=== PATIENT | female | born 1955 | race Caucasian/White ===

== ENCOUNTER 2019-01-31 08:06 | Outpatient (CLI) | payer MEDICARE | END 2019-01-31 23:59 | disposition home or self-care (01) | LOC: CFH 08:06 | PROVIDERS: ATTEND Internal Medicine Cardiovascular Disease | DX: E78.5 Hyperlipidemia, unspecified (principal); R07.9 Chest pain, unspecified; I50.9 Heart failure, unspecified | CPT/HCPCS: 75571 ==

== ENCOUNTER → 2019-05-16 | Outpatient (CLI) | payer MEDICARE | END | disposition home or self-care (01) | LOC: CFH 12:11 | PROVIDERS: ATTEND Internal Medicine Cardiovascular Disease | DX: I10 Essential (primary) hypertension (principal); R07.89 Other chest pain | CPT/HCPCS: 78452; 93017; A9502 ==

== ENCOUNTER 2019-08-18 14:59 | Outpatient (CLI) | payer MEDICARE | END 2019-08-18 23:59 | disposition home or self-care (01) | LOC: CFH 14:59 | PROVIDERS: ATTEND Physician Assistant Medical | DX: R07.89 Other chest pain (principal); R06.02 Shortness of breath; I10 Essential (primary) hypertension; E78.5 Hyperlipidemia, unspecified; E11.9 Type 2 diabetes mellitus without complications | CPT/HCPCS: 93306 ==